=== PATIENT | male | born 1970 | race Caucasian/White ===

== ENCOUNTER → 2016-09-28 | Outpatient (CLI) | payer OTHER ==
[~2016-09-28] MED LIST: CIPRO250 MG PO; FLOMAX0.4 MG PO; NORCO 5-325 TA1 EACH PO; TRAZODONE150 MG PO; ZOLOFT100 MG PO
== END | disposition home or self-care (01) ==
LOC: CT 15:55
DX: N20.0 Calculus of kidney (principal); M51.37 Other intervertebral disc degeneration, lumbosacral region; M54.5 Low back pain